=== PATIENT | male | born 1940 | race Caucasian/White ===

== ENCOUNTER 2019-04-18 11:53 | Observation (INO) | payer MEDICARE, OTHER, SELFPAY ==
[2019-04-18] VITALS (7 sets, daily range): BP systolic 151–169; BP diastolic 63–96; PULSE 58–67; RESP 16–21; TEMP 36.5–37.4; O2SAT 95–100; BMI 27.7
[2019-04-18 12:12] LABS: Add Manual Diff / Slide Review NO; Basophils Absolute Auto 0 /uL (0-100); Basophils Percent Auto 0.6 % (0-2); Eosinophils Absolute Auto 0 /uL (0-450); Eosinophils Percent Auto 0.4 % (2-4); Hematocrit 41.5 % (41-53); Lymphocytes Absolute Auto 1300 /uL (1100-4500); Lymphocytes Percent Auto 20.3 % (25-40); Mean Corpuscular HGB Conc 33.7 % (30-36); Mean Corpuscular Hemoglobin 31.3 PG (26-34); Monocytes Absolute Auto 400 /uL (0-900); Monocytes Percent Auto 6.5 % (3-14); Neutrophils Absolute Auto 4500 /uL (1500-7000); Neutrophils Percent Auto 72.2 % (50-75); Platelet Count 197 X10^3/uL (150-400); Red Blood Cell Count 4.46 X10^6/uL (4.5-5.9); Red Cell Distribution Width 14.6 % (11.6-14.8); White Blood Cell Count 6.2 X10^3/uL (4.5-11.0)
--- NOTE | 2019-04-18 12:17 | ED_ITS ---
HPI - Neuro Symptoms/Deficit <JUVENCIO Kingston - Last Filed: 04/18/19 21:55> General Chief Complaint: Neuro Symptoms/Deficit Stated Complaint: Possible stroke this morning Time Seen by Provider: 04/18/19 12:03 Source: patient Mode of arrival: ambulatory Limitations: no limitations History of Present Illness HPI Narrative: 78-year-old male with a history of CVA 6 years ago and a TIA 5 y ears ago, presents emergency department today complaining of right-sided facial numbness that extended to his right arm and right hip at 3:00 a.m. this morning. At that time he noted a little bit of nausea and a 1 on a 10 dull aching frontal headache. Patient went back to sleep. When he awoke with the symptoms he called his neurologist Dr. Pelletier in [place] and was instructed to take 4 pills of Plavix and 1 aspirin. Patient states he took 1 Plavix at 8:30 a.m., and 3 with an aspirin at 9:45 a.m.. Patient states his arm and leg numbness have completely resolved but the right-sided facial numbness, but he reports little bit better, he states it is still continuing, additionally has low-grade headache still remains. He denies any head trauma, vision changes, dysarthria, dysphagia, facial droop, drooling, difficulty speaking, limb weakness, fevers, chest pain, shortness of breath, dizziness, vomiting, diarrhea, abdominal pain, change in bowel patterns, bleeding or bruising, dysuria, or swelling of his legs. Patient was able to give clear history, patient's was at bedside at this time. On Anticoagulants: Yes (Plavix) Related Data Home Medications Medication Instructions Recorded Confirmed atorvastatin 40 mg PO QPM 04/18/19 04/18/19 clopidogrel 75 mg PO DAILY 04/18/19 04/18/19 Allergies Allergy/AdvReac Type Severity Reaction Status Date / Time Sulfa (Sulfonamide Allergy Mild Rash Verified 04/18/19 12:08 Antibiotics) Review of Systems <JUVENCIO Kingston - Last Filed: 04/18/19 21:55> Review of Systems Narrative: REVIEW OF SYSTEMS: GENERAL: Denies fever, chills, malaise, or wt. loss. HENT: No head trauma, hearing loss, rhinorrhea, epistaxis, sinus pressure, sore throat, or dysphagia. EYES: No loss of vision, double vision, eye pain, or irritation. CARDIOVASCULAR: No chest pain, palpitations, edema, syncope, or orthopnea. RESPIRATORY: No shortness of breath, cough, or wheeze. GASTROINTESTINAL: No change in appetite, nausea, vomiting, stool changes, or melena. GENITOURINARY: No flank pain, urinary incontinence, hesitancy, frequency, or dysuria. No vaginal discharge or dyspareunia. MUSCULOSKELETAL: No pain, weakness, or deformities. INTEGUMENTARY: No rash, lesions, or pruritus. NEURO: Patient rate sports right-sided facial numbness, see HPI. Denies memory loss, confusion, or headaches. PSYCH: No behavior or mood changes. ENDOCRINOLOGY: No hair loss of temperature intolerance. HEMATOLOGY: No easy bruising. LYMPHATIC: No lymphadenopathy. PFSH <JUVENCIO Kingston - Last Filed: 04/18/19 21:55> Medical History CVA (cerebral vascular accident) (Acute) TIA (transient ischemic attack) (Acute) Social History household members: spouse Smoking Status: Former smoker Social History household members: spouse Smoking Status: Former smoker Exam <JUVENCIO Kingston - Last Filed: 04/18/19 21:55> Initial Vital Signs Initial Vital Signs: Vital Signs Temperature 98.5 F 04/18/19 12:05 Pulse Rate 67 04/18/19 12:05 Respiratory Rate 17 04/18/19 12:05 Blood Pressure 151/83 H 04/18/19 12:05 Pulse Oximetry 96 04/18/19 12:05 PHYSICAL EXAMINATION: GENERAL: Well groomed, alert, and cooperative Answers questions promptly and appropriately. Vital signs noted. HENT: Normocephalic, atraumatic. Oral mucosa is pink and moist, no caries or lesions present. Pharynx without erythema. EYES: PERRLA, EOMIs, conjunctiva pink, sclera white, no periorbital swelling. NECK: Full range of motion, nontender. LYMPH: No lymphadenopathy. CHEST: Normal to inspection and without deformities. CARDIOVASCULAR: S1 and S2 sounds normal. Regular rate and rhythm, no murmurs, clicks, or bruits. No pedal edema. RESPIRATORY: Normal respiratory rate, trachea midline, airway patent. No stridor, nasal flaring or accessory muscle use. Lungs are clear in all morales without wheeze, rhonchi, or crackles. GASTROINTESTINAL: Bowel sounds normoactive. Abdomen is soft and non-tender. No organomegaly. MUSCULOSKELETAL: Normal gait and coordination. Equal tone and mass bilaterally. No spinal tenderness or deformities. EXTREMITIES: CMS intact. Full range of motion and 5/5 strength to upper and lower extremities SKIN: Warm, dry, soft, appropriate color for ethnicity. No lesions, rashes, or wounds. NEURO: Alert and Oriented X 3. CN III-XII grossly intact. Good coordination. No ataxia, or sensory deficits, or cognitive issues. Serial made scores were done initially, 30 minutes later, an additional 15 minutes later; all NIH scores were 0. Patient was able to this distinguish light touch sensation on both sides of his face, he was able to distinguish between sharp and dull, and two-point distinction was recognized at 1-2cm. PSYCH: Appropriate affect and mood. <Ashlee Mcmahon MD - Last Filed: 04/19/19 16:24> Initial Vital Signs Initial Vital Signs: Vital Signs Temperature 98.5 F 04/18/19 12:05 Pulse Rate 67 04/18/19 12:05 Respiratory Rate 17 04/18/19 12:05 Blood Pressure 151/83 H 04/18/19 12:05 Pulse Oximetry 96 04/18/19 12:05 Scores <JUVENCIO Kingston - Last Filed: 04/18/19 21:55> NIH Stroke Scale Level of Conciousness: Alert, keenly responsive Ask month/age: Answers both questions correctly. Open/close eyes, close hand: Performs both tasks correctly Best gaze horizontal: Normal Visual morales: No visual loss Facial palsy: Normal symetrical movement Left arm drift: No drift for full 10 sec Right arm drift: No drift for full 10 sec Left leg drift: No drift for full 10 sec Right leg drift: No drift for full 10 sec Limb ataxia: Absent Sensory on face/arms/legs: Normal, no sensory loss Best language: No aphasia, normal Dysarthria: Normal Extinction or inattention: No abnormality Total NIH Stroke scale score: 0 Course <JUVENCIO Kingston - Last Filed: 04/18/19 21:55> Course Course Narrative: Patient's symptoms remained unchanged throughout the emergency department stay. I consulted the patient's neurologist Dr. Pelletier in [place]. He stated the differential included transient symptoms from his previous CVA versus another TIA, he recommended that patient be admitted to and have a follow-up MRI in the morning. Dr. Flores was consulted, a agreed to admit the patient to observation. The patient and his was updated. Orders Ordered: Discontinued Medications Acetaminophen (Tylenol) 650 mg PO Q6HR PRN PRN Reason: As Needed for Fever/Mild Pain Atorvastatin Calcium (Lipitor) 40 mg PO QPM [facility] Last Admin: 04/18/19 15:59 Dose: 40 mg Documented by: FUNMILAYO Clopidogrel Bisulfate (Plavix) 75 mg PO DAILY [facility] Admin: 04/19/19 08:48 Dose: 75 mg Documented by: TERRI Heparin Sodium (Porcine) (Heparin) 5,000 unit SUBCUT BID [facility] Last Admin: 04/19/19 08:48 Dose: Not Given Documented by: Admin: 04/18/19 20:20 Dose: 5,000 unit Documented by: AMANDA Sodium Chloride (Normal Saline 0.9%) 1,000 mls @ 100 mls/hr IV CONT [facility] Last Infusion: 04/19/19 07:47 Dose: 0 mls/hr Documented by: Admin: 04/19/19 04:46 Dose: 100 mls/hr Documented by: Infusion: 04/19/19 03:46 Dose: 100 mls/hr Documented by: Infusion: 04/18/19 21:46 Dose: 100 mls/hr Documented by: Infusion: 04/18/19 14:34 Dose: 150 mls/hr Documented by: Admin: 04/18/19 12:33 Dose: 150 mls/hr Documented by: LOWELL Lisinopril (Zestril) 5 mg PO DAILY [facility] Losartan Potassium (Cozaar) 12.5 mg PO DAILY [facility] Last Admin: 04/19/19 09:38 Dose: Not Given Documented by: TERRI Vital Signs Vital signs: Vital Signs - 8 hr 04/18/19 12:05 Temperature 98.5 F Pulse Rate 67 Respiratory Rate 17 Blood Pressure 151/83 H Pulse Oximetry 96 <Ashlee Mcmahon MD - Last Filed: 04/19/19 16:24> Orders Ordered: Discontinued Medications Acetaminophen (Tylenol) 650 mg PO Q6HR PRN PRN Reason: As Needed for Fever/Mild Pain Atorvastatin Calcium (Lipitor) 40 mg PO QPM [facility] Last Admin: 04/18/19 15:59 Dose: 40 mg Documented by: FUNMILAYO Clopidogrel Bisulfate (Plavix) 75 mg PO DAILY [facility] Last Admin: 04/19/19 08:48 Dose: 75 mg Documented by: TERRI Heparin Sodium (Porcine) (Heparin) 5,000 unit SUBCUT BID [facility] Last Admin: 04/19/19 08:48 Dose: Not Given Documented by: Admin: 04/18/19 20:20 Dose: 5,000 unit Documented by: AMANDA Sodium Chloride (Normal Saline 0.9%) 1,000 mls @ 100 mls/hr IV CONT [facility] Last Infusion: 04/19/19 07:47 Dose: 0 mls/hr Documented by: Admin: 04/19/19 04:46 Dose: 100 mls/hr Documented by: Infusion: 04/19/19 03:46 Dose: 100 mls/hr Documented by: Infusion: 04/18/19 21:46 Dose: 100 mls/hr Documented by: Infusion: 04/18/19 14:34 Dose: 150 mls/hr Documented by: Admin: 04/18/19 12:33 Dose: 150 mls/hr Documented by: LOWELL Lisinopril (Zestril) 5 mg PO DAILY [facility] Losartan Potassium (Cozaar) 12.5 mg PO DAILY [facility] Last Admin: 04/19/19 09:38 Dose: Not Given Documented by: TERRI Vital Signs Vital signs: Vital Signs - 8 hr 04/18/19 12:05 Temperature 98.5 F Pulse Rate 67 Respiratory Rate 17 Blood Pressure 151/83 H Pulse Oximetry 96 MDM - Neuro Symptoms/Deficit <JUVENCIO Kingston - Last Filed: 04/18/19 21:55> Medical Records Attestation: I reviewed the patient's medical records. Lab Data Attestation: I reviewed the patient's lab results. Result diagrams: 04/19/19 05:32 04/19/19 05:32 Labs: Lab Results 04/18/19 04/18/19 04/18/19 Range/Units 12:05 12:05 12:05 WBC 6.2 (4.5-11.0) X10^3/uL RBC 4.46 L (4.5-5.9) X10^6/uL Hgb 14.0 (13.5-17.5) g/dL Hct 41.5 (41-53) % MCV 93.0 (80-100) fL MCH 31.3 (26-34) PG MCHC 33.7 (30-36) % RDW 14.6 (11.6-14.8) % Plt Count 197 (150-400) X10^3/uL Neut % (Auto) 72.2 (50-75) % Lymph % (Auto) 20.3 L (25-40) % Pratt % (Auto) 6.5 (3-14) % Eos % (Auto) 0.4 L (2-4) % Baso % (Auto) 0.6 (0-2) % Neut # (Auto) 4500 (2892-8699) /uL Lymph # (Auto) 1300 (8178-3183) /uL Pratt # (Auto) 400 (0-900) /uL Eos # (Auto) 0 (0-450) /uL Baso # (Auto) 0 (0-100) /uL PT 10.7 (10.1-12.7) SECONDS INR 0.9 (0.9-1.3) APTT 29 (26.4-36.2) SECONDS Sodium 141 (137-145) mmol/L Potassium 4.0 (3.4-5.1) mmol/L Chloride 106 (98-107) mmol/L Carbon Dioxide 24 (22-32) mmol/L BUN 19 (9-20) mg/dL Creatinine 0.70 (0.66-1.25) mg/dL Estimated GFR > 60.0 (>60) mL/min BUN/Creatinine Ratio 27.1 H (6-22) Glucose 119 H (80-110) mg/dL Calcium 9.7 (8.4-10.2) mg/dL Urine RBC (0-5/HPF) Urine WBC (0-5/HPF) Ur Squamous Epith Cells (0-5/HPF) Urine Bacteria (None) Ur Culture Indicated? Urine Opiates Screen (Negative) Ur Oxycodone Screen (Negative) Urine Methadone Screen (Negative) Ur Barbiturates Screen (Negative) U Tricyclic Antidepress (Negative) Ur Phencyclidine Scrn (Negative) Ur Amphetamines Screen (Negative) U Methamphetamines Scrn (Negative) Ur MDMA Scrn (Ecstasy) (Negative) U Benzodiazepines Scrn (Negative) Urine Cocaine Screen (Negative) U Marijuana (THC) Screen (Negative) 04/18/19 04/18/19 Range/Units 13:10 13:10 WBC (4.5-11.0) X10^3/uL RBC (4.5-5.9) X10^6/uL Hgb (13.5-17.5) g/dL Hct (41-53) % MCV (80-100) fL MCH (26-34) PG MCHC (30-36) % RDW (11.6-14.8) % Plt Count (150-400) X10^3/uL Neut % (Auto) (50-75) % Lymph % (Auto) (25-40) % Pratt % (Auto) (3-14) % Eos % (Auto) (2-4) % Baso % (Auto) (0-2) % Neut # (Auto) (8946-2487) /uL Lymph # (Auto) (1055-4467) /uL Pratt # (Auto) (0-900) /uL Eos # (Auto) (0-450) /uL Baso # (Auto) (0-100) /uL PT (10.1-12.7) SECONDS INR (0.9-1.3) APTT (26.4-36.2) SECONDS Sodium (137-145) mmol/L Potassium (3.4-5.1) mmol/L Chloride (98-107) mmol/L Carbon Dioxide (22-32) mmol/L BUN (9-20) mg/dL Creatinine (0.66-1.25) mg/dL Estimated GFR (>60) mL/min BUN/Creatinine Ratio (6-22) Glucose (80-110) mg/dL Calcium (8.4-10.2) mg/dL Urine RBC None seen (0-5/HPF) Urine WBC 5-10/hpf H (0-5/HPF) Ur Squamous Epith Cells 10-30 /hpf H (0-5/HPF) Urine Bacteria None seen (None) Ur Culture Indicated? Cult not indicated Urine Opiates Screen Positive H (Negative) Ur Oxycodone Screen Negative (Negative) Urine Methadone Screen Negative (Negative) Ur Barbiturates Screen Negative (Negative) U Tricyclic Antidepress Negative (Negative) Ur Phencyclidine Scrn Negative (Negative) Ur Amphetamines Screen Negative (Negative) U Methamphetamines Scrn Negative (Negative) Ur MDMA Scrn (Ecstasy) Negative (Negative) U Benzodiazepines Scrn Negative (Negative) Urine Cocaine Screen Negative (Negative) U Marijuana (THC) Screen Negative (Negative) Point of Care Testing Glucose POC 108 Urine Dip Bedside Urine Glucose Negative Bedside Urine Bilirubin - Negative Bedside Urine Ketone - Negative Urine Specific [place] 1.005 Bedside Urine Occult Blood +++ Bedside Urine pH 8 Bedside Urine Protein - Negative Bedside Urine Urobilinogen - Negative Bedside Urine Nitrite - Negative Bedside Urine Leukocytes + [address] scan - head: Radiologist's impression: [address] [address] [address] Scan Report Signed Patient: Jacob Pereyra WMR#: [id number] : 1940Acct:[id number] Age/Sex: 78 / MDate of Service: 04/18/19 Loc: ED Accession Number: [id number] Procedure: CT head/brain wo con Ordering Provider: Ping Ramos PROCEDURE: CT HEAD/BRAIN WO CON INDICATIONS: Facial numbness, hz of CVA TECHNIQUE: Noncontrast 4.5 mm thick angled axial sections acquired from the foramen magnum to the vertex, with coronal and sagittal reformats. For radiation dose reduction, the following was used: automated exposure control, adjustment of mA and/or kV according to patient size. COMPARISON: None. FINDINGS: Image quality: Excellent. CSF spaces: Basal cisterns are patent. No extra-axial fluid collections. The ventricles are symmetric in size and shape. Brain: No intracranial bleeds or masses. There is cerebral volume loss for age, with resultant ventricular and sulcal prominence. There are periventricular and deep white matter chronic small vessel ischemic changes. There is intracranial internal carotid artery atherosclerosis. Skull and face: Calvarium and visualized facial bones appear intact, without suspicious lesions. Sinuses: Visualized sinuses and mastoids are clear. IMPRESSION: 1. No acute intracranial abnormalities. 2. Cerebral volume loss and chronic microvascular ischemic changes. Dictated by: Vic Deng M.D. on 04/18/2019 at 11:32 Approved by: Vic Deng M.D. on 04/18/2019 at 11:34 ECG Data Interpretation: Normal sinus rhythm, rate 62, FL interval 171, QTC 414. No ST elevation or ST depression, no ectopy, no T-wave abnormality. EKG was also viewed by Dr. Mcmahon. MDM Narrative Medical decision making narrative: As discussed with neurologist the differential includes TIA versus transient residual symptoms from past CVA. Further testing such as an MRI is needed to rule out an differentiate these diagnosis. I have less concern for CVA as patient's serial NIH scores have remained 0 and there is no neurological deficit noted on exam. No concern for infection or other non possible etiologies such as shingles due to lack of systemic symptoms such as rash, fever, or tachycardia. Patient was admitted under observation. <Ashlee Mcmahon MD - Last Filed: 04/19/19 16:24> Lab Data Labs: Lab Results 04/18/19 04/18/19 04/18/19 Range/Units 12:05 12:05 12:05 WBC 6.2 (4.5-11.0) X10^3/uL RBC 4.46 L (4.5-5.9) X10^6/uL Hgb 14.0 (13.5-17.5) g/dL Hct 41.5 (41-53) % MCV 93.0 (80-100) fL MCH 31.3 (26-34) PG MCHC 33.7 (30-36) % RDW 14.6 (11.6-14.8) % Plt Count 197 (150-400) X10^3/uL Neut % (Auto) 72.2 (50-75) % Lymph % (Auto) 20.3 L (25-40) % Pratt % (Auto) 6.5 (3-14) % Eos % (Auto) 0.4 L (2-4) % Baso % (Auto) 0.6 (0-2) % Neut # (Auto) 4500 (5880-0790) /uL Lymph # (Auto) 1300 (2543-6006) /uL Pratt # (Auto) 400 (0-900) /uL Eos # (Auto) 0 (0-450) /uL Baso # (Auto) 0 (0-100) /uL PT 10.7 (10.1-12.7) SECONDS INR 0.9 (0.9-1.3) APTT 29 (26.4-36.2) SECONDS Sodium 141 (137-145) mmol/L Potassium 4.0 (3.4-5.1) mmol/L Chloride 106 (98-107) mmol/L Carbon Dioxide 24 (22-32) mmol/L BUN 19 (9-20) mg/dL Creatinine 0.70 (0.66-1.25) mg/dL Estimated GFR > 60.0 (>60) mL/min BUN/Creatinine Ratio 27.1 H (6-22) Glucose 119 H (80-110) mg/dL Calcium 9.7 (8.4-10.2) mg/dL Urine RBC (0-5/HPF) Urine WBC (0-5/HPF) Ur Squamous Epith Cells (0-5/HPF) Urine Bacteria (None) Ur Culture Indicated? Urine Opiates Screen (Negative) Ur Oxycodone Screen (Negative) Urine Methadone Screen (Negative) Ur Barbiturates Screen (Negative) U Tricyclic Antidepress (Negative) Ur Phencyclidine Scrn (Negative) Ur Amphetamines Screen (Negative) U Methamphetamines Scrn (Negative) Ur MDMA Scrn (Ecstasy) (Negative) U Benzodiazepines Scrn (Negative) Urine Cocaine Screen (Negative) U Marijuana (THC) Screen (Negative) 04/18/19 04/18/19 Range/Units 13:10 13:10 WBC (4.5-11.0) X10^3/uL RBC (4.5-5.9) X10^6/uL Hgb (13.5-17.5) g/dL Hct (41-53) % MCV (80-100) fL MCH (26-34) PG MCHC (30-36) % RDW (11.6-14.8) % Plt Count (150-400) X10^3/uL Neut % (Auto) (50-75) % Lymph % (Auto) (25-40) % Pratt % (Auto) (3-14) % Eos % (Auto) (2-4) % Baso % (Auto) (0-2) % Neut # (Auto) (5948-3590) /uL Lymph # (Auto) (9713-8844) /uL Pratt # (Auto) (0-900) /uL Eos # (Auto) (0-450) /uL Baso # (Auto) (0-100) /uL PT (10.1-12.7) SECONDS INR (0.9-1.3) APTT (26.4-36.2) SECONDS Sodium (137-145) mmol/L Potassium (3.4-5.1) mmol/L Chloride (98-107) mmol/L Carbon Dioxide (22-32) mmol/L BUN (9-20) mg/dL Creatinine (0.66-1.25) mg/dL Estimated GFR (>60) mL/min BUN/Creatinine Ratio (6-22) Glucose (80-110) mg/dL Calcium (8.4-10.2) mg/dL Urine RBC None seen (0-5/HPF) Urine WBC 5-10/hpf H (0-5/HPF) Ur Squamous Epith Cells 10-30 /hpf H (0-5/HPF) Urine Bacteria None seen (None) Ur Culture Indicated? Cult not indicated Urine Opiates Screen Positive H (Negative) Ur Oxycodone Screen Negative (Negative) Urine Methadone Screen Negative (Negative) Ur Barbiturates Screen Negative (Negative) U Tricyclic Antidepress Negative (Negative) Ur Phencyclidine Scrn Negative (Negative) Ur Amphetamines Screen Negative (Negative) U Methamphetamines Scrn Negative (Negative) Ur MDMA Scrn (Ecstasy) Negative (Negative) U Benzodiazepines Scrn Negative (Negative) Urine Cocaine Screen Negative (Negative) U Marijuana (THC) Screen Negative (Negative) Point of Care Testing Glucose POC 108 Urine Dip Bedside Urine Glucose Negative Bedside Urine Bilirubin - Negative Bedside Urine Ketone - Negative Urine Specific [place] 1.005 Bedside Urine Occult Blood +++ Bedside Urine pH 8 Bedside Urine Protein - Negative Bedside Urine Urobilinogen - Negative Bedside Urine Nitrite - Negative Bedside Urine Leukocytes + 70 Esterase Discharge Plan Departure Patient Disposition: Admitted as Observation Clinical Impression: TIA (transient ischemic attack) Discharge Date/Time: 04/18/19 14:34 Instructions: The Mediterranean Diet and Good Health, Recommendations to Help Prevent High Blood Pressure, Transient Ischemic Attack, DI for Transient Ischemic Attack, DI for Prediabetes Admit Date/Time: 04/18/19 13:54 Admit Provider: Ricardo Flores
[2019-04-18 12:18] LABS: INR 0.9 (0.9-1.3); Prothrombin Time 10.7 SECONDS (10.1-12.7)
[2019-04-18 12:20] LABS: PTT Partial Thromboplastin Tim 29 SECONDS (26.4-36.2)
[2019-04-18 12:22] LABS: BUN Creatinine Ratio 27.1 (6-22); Blood Urea Nitrogen 19 mg/dL (9-20); Calcium 9.7 mg/dL (8.4-10.2); Carbon Dioxide 24 mmol/L (22-32); Chloride 106 mmol/L (98-107); Estimated Glomerular Filt Rate > 60.0 mL/min (>60); Glucose 119 mg/dL (80-110); HEMOLYSIS 25 (0-50); Sodium 141 mmol/L (137-145)
--- NOTE | 2019-04-18 12:22 | DI.CT.S_ITS ---
PROCEDURE: CT HEAD/BRAIN WO CON INDICATIONS: Facial numbness, hz of CVA TECHNIQUE: Noncontrast 4.5 mm thick angled axial sections acquired from the foramen magnum to the vertex, with coronal and sagittal reformats. For radiation dose reduction, the following was used: automated exposure control, adjustment of mA and/or kV according to patient size. COMPARISON: None. FINDINGS: Image quality: Excellent. CSF spaces: Basal cisterns are patent. No extra-axial fluid collections. The ventricles are symmetric in size and shape. Brain: No intracranial bleeds or masses. There is cerebral volume loss for age, with resultant ventricular and sulcal prominence. There are periventricular and deep white matter chronic small vessel ischemic changes. There is intracranial internal carotid artery atherosclerosis. Skull and face: Calvarium and visualized facial bones appear intact, without suspicious lesions. Sinuses: Visualized sinuses and mastoids are clear. IMPRESSION: 1. No acute intracranial abnormalities. 2. Cerebral volume loss and chronic microvascular ischemic changes. Dictated by: Vic Deng M.D. on 04/18/2019 at 11:32 Approved by: Vic Deng M.D. on 04/18/2019 at 11:34
[2019-04-18] MEDS: SODIUM CHLORIDE 0.9% 1,000 ML 150 ML IV (12:33)
[2019-04-18 13:16] LABS: Bacteria Urine None Seen; RBC Urine None Seen (0-5/HPF)
[2019-04-18 13:27] LABS: Urine Amphetamines Negative (Negative); Urine Barbiturates Negative (Negative); Urine Benzodiazepines Negative (Negative); Urine Cocaine Negative (Negative); Urine MDMA Negative (Negative); Urine Methadone Negative (Negative); Urine Methamphetamines Negative (Negative); Urine Morphine/Opi cutoff 2000 Positive (Negative); Urine Oxycodone Negative (Negative); Urine Phencyclidine Negative (Negative); Urine Tetrahydrocannabinol Negative (Negative); Urine Tricyclic Antidepressant Negative (Negative)
[2019-04-18 13:28] LABS: Culture Indicated Urine Cult Not Indicated; Squamous Epithelial Cell Urine 10-30 /HPF (0-5/HPF); WBC Urine 5-10/HPF (0-5/HPF)
--- NOTE | 2019-04-18 15:40 | P.HP_ITS ---
History of Present Illness History of Present Illness Date Patient Seen: 04/18/19 Time Patient Seen: 15:40 Chief complaint: Possible stoke this morning Narrative: Mr. Pereyra is a 78-year-old male with past medical history of CVA 6 years ago and subsequent TIA 5 years ago on Plavix and hyperlipidemia who presented with new onset of right-sided numbness starting at 3:00 a.m. this morning. Patient states that he woke up at 3:00 a.m. to urinate, an noticed this and went back to bed. When he spoke with his at 6:30 a.m. he again noted right-sided numbness in his arm, leg and mouth. His with him and did not note any facial droop, imbalance, slurred speech, focal weakness in his right side. He states this is similar to his prior CVA 6 years ago. He normally has some numbness on the tips of his hands since his prior CVA but this episode was profoundly worse. He states now that his symptoms have largely resolved. He denies any recent fever, chills, headache, vision changes, chest pain, shortness of breath, nausea, vomiting, abdominal pain, lower extremity edema, orthopnea, or rashes. He has a neurologist that follows him, whom he called this morning and recommended that he take 4 75mg Plavix and a baby aspirin and go to the emergency room. In the emergency room his symptoms had improved including his right arm and right leg numbness, however his right facial numbness continued. Upon my evaluation the patient denied any symptoms at all. Total duration of symptoms was about 12 hours from known onset at 3:00 a.m. Patient History Medical History (Updated 04/18/19 @ 18:50 by Ricardo Flores DO) CVA (cerebral vascular accident) (Acute) TIA (transient ischemic attack) (Acute) Social History household members: spouse Smoking Status: Former smoker Family & Social History Safety & Behavioral: Feels Safe in Current Yes Environment Tobacco & Substance use: Smoking Status Former smoker alcohol intake frequency 3 or more drinks per day Substance Use Type does not use Meds Home Medications and Allergies Home Medications Medication Instructions Recorded Confirmed Type atorvastatin 40 mg PO QPM 04/18/19 04/18/19 History clopidogrel 75 mg PO DAILY 04/18/19 04/18/19 History Allergies Allergy/AdvReac Type Severity Reaction Status Date / Time Sulfa (Sulfonamide Allergy Mild Rash Verified 04/18/19 12:08 Antibiotics) Review of Systems Review of Systems Narrative: All other systems reviewed with the patient and are negative unless otherwise stated. Exam Vital Signs (past 8 hours): - 04/18/19 12:05 04/18/19 13:33 04/18/19 14:37 Temperature 98.5 F 97.7 F Pulse Rate 67 64 64 Respiratory Rate 17 21 16 Blood Pressure 151/83 H 160/96 H Blood Pressure [Left Arm] 160/87 H Pulse Oximetry 96 96 100 Oxygen Delivery Method Room Air Oxygen Flow Rate 0 Narrative Exam Narrative: GENERAL APPEARANCE: Well developed, well nourished, in no acute distress. SKIN: Inspection of the skin reveals no rashes, ulcerations or petechiae. HEENT: The sclerae were anicteric and conjunctivae were pink and moist. Extraocular movements were intact and pupils were equal, round with normal accommodation. External inspection of the ears and nose showed no scars, lesions, or masses. Lips, teeth, and gums showed normal mucosa. The oral mucosa, hard and soft palate, tongue and posterior pharynx were unremarkable. NECK: Supple and symmetric. There was no thyroid enlargement, and no tenderness, or masses were felt. CHEST: Normal AP diameter and normal contour without any kyphoscoliosis. LUNGS: Auscultation of the lungs revealed no wheezes, rhonchi, or rales. CARDIOVASCULAR: There was a regular rate and rhythm without any murmurs, gallops, rubs. Peripheral pulses were 2+ and symmetric. ABDOMEN: Soft and nontender with normal bowel sounds. No ascites was noted. MUSCULOSKELETAL: There was no tenderness or effusions noted. Muscle strength and tone were normal. EXTREMITIES: No cyanosis, clubbing or edema. NEUROLOGIC: Alert and oriented x 3. Normal affect. Gait was normal. CN 2-12 grossly intact bilaterally. Strength is +5/5 in the Upper Extremities and Lower Extremities Bilaterally. Sensation to touch was normal. Objective Labs Result Diagrams: 04/18/19 12:05 04/18/19 12:05 Labs: Laboratory Results - last 24 hr 04/18/19 04/18/19 04/18/19 12:05 12:05 12:05 WBC 6.2 RBC 4.46 L Hgb 14.0 Hct 41.5 MCV 93.0 MCH 31.3 MCHC 33.7 RDW 14.6 Plt Count 197 Neut % (Auto) 72.2 Lymph % (Auto) 20.3 L [place] % (Auto) 6.5 Eos % (Auto) 0.4 L Baso % (Auto) 0.6 Neut # (Auto) 4500 Lymph # (Auto) 1300 [place] # (Auto) 400 Eos # (Auto) 0 Baso # (Auto) 0 PT 10.7 INR 0.9 APTT 29 Sodium 141 Potassium 4.0 Chloride 106 Carbon Dioxide 24 BUN 19 Creatinine 0.70 Estimated GFR > 60.0 BUN/Creatinine Ratio 27.1 H Glucose 119 H Calcium 9.7 Urine RBC Urine WBC Ur Squamous Epith Cells Urine Bacteria Ur Culture Indicated? Urine Opiates Screen Ur Oxycodone Screen Urine Methadone Screen Ur Barbiturates Screen U Tricyclic Antidepress Ur Phencyclidine Scrn Ur Amphetamines Screen U Methamphetamines Scrn Ur MDMA Scrn (Ecstasy) U Benzodiazepines Scrn Urine Cocaine Screen U Marijuana (THC) Screen 04/18/19 04/18/19 13:10 13:10 WBC RBC Hgb Hct MCV MCH MCHC RDW Plt Count Neut % (Auto) Lymph % (Auto) [place] % (Auto) Eos % (Auto) Baso % (Auto) Neut # (Auto) Lymph # (Auto) [place] # (Auto) Eos # (Auto) Baso # (Auto) PT INR APTT Sodium Potassium Chloride Carbon Dioxide BUN Creatinine Estimated GFR BUN/Creatinine Ratio Glucose Calcium Urine RBC None seen Urine WBC 5-10/hpf H Ur Squamous Epith Cells 10-30 /hpf H Urine Bacteria None seen Ur Culture Indicated? Cult not indicated Urine Opiates Screen Positive H Ur Oxycodone Screen Negative Urine Methadone Screen Negative Ur Barbiturates Screen Negative U Tricyclic Antidepress Negative Ur Phencyclidine Scrn Negative Ur Amphetamines Screen Negative U Methamphetamines Scrn Negative Ur MDMA Scrn (Ecstasy) Negative U Benzodiazepines Scrn Negative Urine Cocaine Screen Negative U Marijuana (THC) Screen Negative Assessment & Plan Assessment & Plan narrative: Mr. Pereyra is a 78-year-old male with past medical history of CVA 6 years ago and subsequent TIA 5 years ago on Plavix and hyperlipidemia who presented with new onset of right-sided numbness starting at 3:00 a.m. this morning, he is admitted to the medicine service for likely TIA under observation status. 1. TIA, acute, present on admission -patient presented with right-sided numbness without motor involvement. He reports a similar presentation prior to his prior CVA. Patient's medications are only a statin and Plavix. He denies any other medical health problems but his blood pressure is slightly elevated on admission. -MRI stroke in the morning -PT/OT/speech eval -lipid, TSH, A1c -continue Plavix 2. Hypertension -patient is not currently on any antihypertensive medications. His blood pressure has improved slightly since arriving to the floor. We will allow some permissive hypertension given TIA overnight, however will start small dose of lisinopril in the morning.. - start lisinopril 5 mg in the AM Code: full DVT: HSQ Dispo: Admit as observation stay is not expected to exceed 2 midnights.
[2019-04-18] MEDS: ATORVASTATIN 20 MG TABLET 40 MG PO (15:59)
[2019-04-18] MEDS: HEPARIN 5,000 UNIT/ML VIAL 5000 UNIT SUBCUT (20:20)
[2019-04-19 00:30] VITALS: O2SAT 96
[2019-04-19 04:23] VITALS: BP 149/76; PULSE 67; RESP 16; TEMP 36.6; O2SAT 91
[2019-04-19] MEDS: SODIUM CHLORIDE 0.9% 1,000 ML 100 ML IV (04:46)
[2019-04-19 06:23] LABS: Add Manual Diff / Slide Review NO; Basophils Absolute Auto 0 /uL (0-100); Basophils Percent Auto 0.5 % (0-2); Eosinophils Absolute Auto 100 /uL (0-450); Eosinophils Percent Auto 1.5 % (2-4); Hematocrit 38.5 % (41-53); Lymphocytes Absolute Auto 1800 /uL (1100-4500); Lymphocytes Percent Auto 28.2 % (25-40); Mean Corpuscular HGB Conc 33.9 % (30-36); Mean Corpuscular Hemoglobin 31.3 PG (26-34); Mean Corpuscular Volume 92.2 fL (80-100); Monocytes Absolute Auto 600 /uL (0-900); Monocytes Percent Auto 8.6 % (3-14); Neutrophils Absolute Auto 4000 /uL (1500-7000); Neutrophils Percent Auto 61.2 % (50-75); Platelet Count 190 X10^3/uL (150-400); Red Blood Cell Count 4.17 X10^6/uL (4.5-5.9); Red Cell Distribution Width 14.6 % (11.6-14.8); White Blood Cell Count 6.5 X10^3/uL (4.5-11.0)
[2019-04-19 06:30] LABS: BUN Creatinine Ratio 21.3 (6-22); Blood Urea Nitrogen 17 mg/dL (9-20); Calcium 8.7 mg/dL (8.4-10.2); Carbon Dioxide 26 mmol/L (22-32); Chloride 107 mmol/L (98-107); Cholesterol 167 mg/dL (140-199); Estimated Glomerular Filt Rate > 60.0 mL/min (>60); Glucose 122 mg/dL (80-110); HDL Cholesterol 57 mg/dL (40-60); HEMOLYSIS < 15 (0-50); LDL Cholesterol Calculated 77 mg/dL (<100); Magnesium 1.9 mg/dL (1.6-2.3); Potassium 3.7 mmol/L (3.4-5.1); Sodium 138 mmol/L (137-145); Triglycerides 164 mg/dL (35-150)
[2019-04-19 06:41] LABS: Hemoglobin A1C% w Est Avg Glu 5.7 % (4.0-6.0)
[2019-04-19 06:59] LABS: TSH w/ Reflex to FT4 2.59 uIU/mL (0.47-4.68)
[2019-04-19 07:45] VITALS: O2SAT 97
[2019-04-19] MEDS: CLOPIDOGREL 75 MG TABLET PO (08:48)
[2019-04-19 09:00] VITALS: BP 133/78; PULSE 70; RESP 16; TEMP 36.7; O2SAT 97
--- NOTE | 2019-04-19 09:00 | PT.IIE ---
Medical History (Last Reviewed 04/18/19 @ 21:48 by JUVENCIO Kingston) CVA (cerebral vascular accident) (Acute) TIA (transient ischemic attack) (Acute) Physical Therapy Inpatient Evaluation/Re-Eval M1 PT/OT-IP Prior Functional Status Start: 04/19/19 13:06 Freq: NEEDED Status: Discharge Protocol: Document 04/19/19 09:00 AB (Rec: 04/19/19 13: AB [email or web address]) Medical Review Prior Functional Status Medical History Reviewed Yes Diet/Fluid Consistency Regular Communication able to make needs known Mobility and Gait pt stated that he is independent with all mobilities and ambulation without AD Social History Household Members spouse Living Arrangements House Number of Floors (Floors) 3 or More Floors Number of Stairs To Enter/Railing? pt lives in a split level house has 12 steps to enter without rails has stairs going down to 1st level and to 2nd level: maximum steps pt has on one level is 14 steps with one rail Home Environment Standard Height Toilet,Walk in Shower Home Equipment Hand Held Shower Employment Status Retired M2 PT-IP Current Condition Start: 04/19/19 13:06 Freq: NEEDED Status: Discharge Protocol: Document 04/19/19 09:00 AB (Rec: 04/19/19 13: AB [email or web address]) Physical Therapy Current Condition Current Condition Evaluation Date 04/19/19 Treatment Diagnosis TIA; difficulty in walking Onset Date 04/18/19 M3 PT-IP Subjective Start: 04/19/19 13:06 Freq: NEEDED Status: Discharge Protocol: Document 04/19/19 09:00 AB (Rec: 04/19/19 13: AB [email or web address]) Subjective Physical Therapy Visit Type Type Initial Evaluation Visit Start Time 09:00 Visit Stop Time 09:25 Total Visit Minutes 25 Number of WELDING SPECIALIST Visits 0 Physical Therapy Visit Comments Patient Comments pt agreeable to do PT Patient Goals to go home Therapy Pain Assessment Pain Present Pain Present Denied Pain M4 PT-IP Mobility and Gait Start: 04/19/19 13:06 Freq: NEEDED Status: Discharge Protocol: Document 04/19/19 09:00 AB (Rec: 04/19/19 13: AB [email or web address]) PT-Bed Mobility Assessment Supine to Sit Supine to Sit Independent Sit to Supine Sit to Supine Independent PT-Transfer Assessment Sit to and From Stand Sit to and from Stand Independent Equipment Transfer Assistive Device Gait Belt Transfers Transfer Destination Bed,Chair Transfer Technique Stand Step Pivot Transfer Ability Level of Assist Independent Gait Assessment Gait Gait Assistance Required: Standby Assistance Distance (Feet) 200 Able to Maintain Weight Bearing Status Yes During Gait Assistive Devices Assistive Device Gait Belt Orthotic/Prosthetic Devices or Brace: No Gait Deviations General Gait Pattern Antalgic,Lateral Trunk Lean Factors Limiting Gait Function Factors Limiting Gait Function Poor Balance Comments Gait Comments pt presents with antalgic gait with slight lateral trunk lean to the R but pt does not have any LOB. Stair Climbing Assessment Evaluation Level of Assist On Stairs Standby Assistance Devices Stair Climbing Assistive Devices None Technique/Endurance Stair Climbing Direction Ascend and Descend Stair Climbing Technique Step Over Step Number of Steps Climbed 3 Query Text: Stair Climbing Set # Repetitions (reps) 5 PT-Balance Assessment Sitting Balance and Reactions Static Sitting Balance Ability Normal Dynamic Sitting Balance Ability Normal Standing Balance and Reactions Static Standing Balance Ability Good Dynamic Standing Balance Ability Good Device Used without AD Functional Assessments Functional Tests Tinetti Balance and Gait Assessment total score: 25/28 which relates to low fall risk M5 PT-IP Objective Assessments Start: 04/19/19 13:06 Freq: NEEDED Status: Discharge Protocol: Document 04/19/19 09:00 AB (Rec: 04/19/19: AB [id number]) Orientation Orientation/Cognition Level of Alertness Alert Orientation Name,Age,Birthday,Month,Date, Year,Day of Week,Place, Situation Memory Description Short Term Impaired Gross Range of Motion Lower Extremity ROM Assessment Within Functional Limits Strength Lower Extremity Strength Assessment Bilaterally Impaired Hip 4-/5 Knee 4-/5 Coordination Assessment Gross Coordination Gross Coordination WNL Sensation Assessment Sensation Gross Sensation WNL Muscle Tone Muscle Tone WNL Yes M6 PT-IP Treatment Start: 04/19/19 13:06 Freq: NEEDED Status: Discharge Protocol: Document 04/19/19 09:00 AB (Rec: 04/19/19 13: AB [email or web address]) Physical Therapy Treatment Education Education Provided Safety M7 PT-IP Assessment and Plan Start: 04/19/19 13:06 Freq: NEEDED Status: Discharge Protocol: Document 04/19/19 09:00 AB (Rec: 04/19/19 13:19 AB [email or web address]) PT Summary Assessment and Plan Potential Rehabilitation Potential Good Status of Condition at Evaluation Stable Summary Impairments Strength,Gait Assessment Summary pt is doing well with mobility and will have spouse to assist him at home if needed. pt plans to go home today. pt may go home when medically stable. Goals Gait Goal Independent Gait Distance 300 Other Goals up/down steps without rails independent improve standing balance to N Days to Meet Goals 3 Frequency of Treatment Frequency Of Treatment Once a Day Treatment Plan Physical Therapy Treatment Plan Gait Training,Therapeutic Exercise,Balance Retraining, Discharge Planning, Neuromuscular Re-ed Recommendations To Nursing Amount of Assist Needed Standby Assistance Discharge Recommendations PT Discharge Recommendations Home with Assistance
--- NOTE | 2019-04-19 09:11 | P.DS_ITS ---
History of Present Illness History of Present Illness Date Patient Seen: 04/18/19 Chief complaint: Possible stoke this morning Narrative: Written by Dr. Flores: Mr. Pereyra is a 78-year-old male with past medical history of CVA 6 years ago and subsequent TIA 5 years ago on Plavix and hyperlipidemia who presented with new onset of right-sided numbness starting at 3:00 a.m. this morning. Patient states that he woke up at 3:00 a.m. to urinate, an noticed this and went back to bed. When he spoke with his at 6:30 a.m. he again noted right-sided numbness in his arm, leg and mouth. His with him and did not note any facial droop, imbalance, slurred speech, focal weakness in his right side. He states this is similar to his prior CVA 6 years ago. He normally has some numbness on the tips of his hands since his prior CVA but this episode was profoundly worse. He states now that his symptoms have largely resolved. He denies any recent fever, chills, headache, vision changes, chest pain, shortness of breath, nausea, vomiting, abdominal pain, lower extremity edema, orthopnea, or rashes. He has a neurologist that follows him, whom he called this morning and recommended that he take 4 75mg Plavix and a baby aspirin and go to the emergency room. In the emergency room his symptoms had improved including his right arm and right leg numbness, however his right facial numbness continued. Upon my evaluation the patient denied any symptoms at all. Total duration of symptoms was about 12 hours from known onset at 3:00 a.m. Discharge Providers Provider Date of admission: 04/18/19 13:54 Discharge Date: 04/19/19 Consults: 04/18/19 15:39 Consult to Occupational Therapy Evaluate & Treat Comment: Physician Instructions: Evaluate and treat Consult to Physical Therapy Evaluate & Treat Comment: Physician Instructions: Evaluate and Treat Consult to Speech Therapy Evaluate & Treat Comment: facial numbness. Physician Instructions: Evaluate and treat Discharge provider: Kaitlin Romeo DO Summary Hospital Course Discharge Diagnosis: 1. Acute TIA, present on admission. Resolved. 2. Elevated blood pressure without history of hypertension, present on admission. Improved. 3. Hyperlipidemia, chronic, present on admission. Possibly active. 4. JOHN, chronic, present on admission. Stable. 5. Prediabetes, acuity unclear, present on admission. Stable. Hospital Course: Jacob Pereyra Jr. is a 70-year-old male with past medical history significant for CVA 6 years ago and subsequent TIA 5 years ago on Plavix, hyperlipidemia, and JOHN on CPAP who presented with new onset of right-sided numbness of face, arm, and leg. 1. Acute TIA, present on admission. Resolved. -Patient presented with right-sided numbness without motor involvement similar to his previous CVA. -Allowed for permissive hypertension for 24 hours. -Continued frequent neuro checks every 4 hours. -Continued to monitor closely on telemetry. Patient in SR with PVC's and no other ectopy. -CT did not demonstrate any acute intracranial abnormalities. -MR stroke protocol demonstrated no evidence of acute ischemia or focal stenosis or occlusion ogf head or neck arteries. -Risk stratified with hemoglobin A1c 5.7% indicative of prediabetes and fasting lipid panel which demonstrated fairly good control other than slightly elevated triglycerides and LDL (due to previous history of CVA goal < 70): Total cholesterol 167, triglycerides at 164, LDL 77 , and HDL 57. Recommended lifestyle modification including diet and exercise. -Continued Plavix 75 mg daily and atorvastatin 40 mg daily at bedtime for stroke prophylaxis. -Consulted physical, occupational, and speech therapy for evaluation and treatment. 2. Elevated blood pressure without history of hypertension, present on admission. Improved. -Patient presented with TIA and mildly elevated BP (SBP 150-170 mmHg) which is possibly physiological to increase cerebral perfusion versus pathologic and chronically elevated. -Patient is not currently on any antihypertensive medications and has no pree xisting diagnosis of hypertension. -Allowed for permissive hypertension for 24 hours. BP trending down. Recommended ambulatory blood pressure monitor outpatient to assure patient does not have hypertension at baseline. 3. Hyperlipidemia, chronic, present on admission. Possibly active. -Fasting lipid panel as above. -Continued atorvastatin 40 mg daily at bedtime. -Recommended lifestyle modification including diet and exercise. 4. JOHN, chronic, present on admission. Stable. -Consulted RT for CPAP protocol. Patient recently had settings updated. 5. Prediabetes, acuity unclear, present on admission. Stable. -Hemoglobin A1C 5.7%. -Recommended lifestyle modification including diet and exercise. Exam Vital Signs (past 8 hours): - 04/19/19 04:23 04/19/19 07:45 04/19/19 09:00 Temperature 97.9 F 98.1 F Pulse Rate 67 70 Respiratory Rate 16 16 Blood Pressure 149/76 H 133/78 Pulse Oximetry 91 97 97 Oxygen Delivery Method Room Air Oxygen Flow Rate 0 Narrative Exam Narrative: General: Older gentleman sitting in bedside chain and in no acute distress, appears younger than stated age, well-developed, well-nourished, appropriately interactive. HEENT: Normocephalic, atraumatic. External ears without defect. Pupils equal, round, and reactive to light. Anicteric sclerae, moist conjunctivae, and no lid lag. Oropharynx free of erythema and cobble stoning with moist mucosa. Neck: Supple with full range of motion. No jugular venous distension. No bruits. No lymphadenopathy or thyromegaly. Cardiovascular: Regular rate and rhythm without murmurs, rubs, or gallops appreciated Pulmonary: Clear to auscultation bilaterally without crackles, wheezes, or rhonchi. Normal respiratory effort without use of accessory muscles. Abdomen: Soft, bowel tones present, nontender, nondistended. No hepatosplenomegaly or masses appreciated. Extremities: No clubbing, cyanosis, or edema. Skin: Normal temperature, turgor, and texture; no rash, ulcers, or subcutaneous nodules appreciated. Neurological: Cranial nerves grossly intact. Normal muscle strength, tone, and bulk. Reflexes, coordination, and sensory function within normal limits. No known gait impairment. No focal neurological deficit. Psychiatric: Normal mood and affect. Alert and oriented to person, place, and time. Objective Labs Result Diagrams: 04/19/19 05:32 04/19/19 05:32 Labs: Laboratory Results - last 24 hr 04/18/19 04/18/19 04/18/19 12:05 12:05 12:05 WBC 6.2 RBC 4.46 L Hgb 14.0 Hct 41.5 MCV 93.0 MCH 31.3 MCHC 33.7 RDW 14.6 Plt Count 197 Neut % (Auto) 72.2 Lymph % (Auto) 20.3 L [place] % (Auto) 6.5 Eos % (Auto) 0.4 L Baso % (Auto) 0.6 Neut # (Auto) 4500 Lymph # (Auto) 1300 [place] # (Auto) 400 Eos # (Auto) 0 Baso # (Auto) 0 PT 10.7 INR 0.9 APTT 29 Sodium 141 Potassium 4.0 Chloride 106 Carbon Dioxide 24 BUN 19 Creatinine 0.70 Estimated GFR > 60.0 BUN/Creatinine Ratio 27.1 H Glucose 119 H Hemoglobin A1c Calcium 9.7 Magnesium Triglycerides Cholesterol LDL Cholesterol, Calc HDL Cholesterol TSH Urine RBC Urine WBC Ur Squamous Epith Cells Urine Bacteria Ur Culture Indicated? Urine Opiates Screen Ur Oxycodone Screen Urine Methadone Screen Ur Barbiturates Screen U Tricyclic Antidepress Ur Phencyclidine Scrn Ur Amphetamines Screen U Methamphetamines Scrn Ur MDMA Scrn (Ecstasy) U Benzodiazepines Scrn Urine Cocaine Screen U Marijuana (THC) Screen 04/18/19 04/18/19 04/19/19 13:10 13:10 05:32 WBC 6.5 RBC 4.17 L Hgb 13.0 L Hct 38.5 L MCV 92.2 MCH 31.3 MCHC 33.9 RDW 14.6 Plt Count 190 Neut % (Auto) 61.2 Lymph % (Auto) 28.2 [place] % (Auto) 8.6 Eos % (Auto) 1.5 L Baso % (Auto) 0.5 Neut # (Auto) 4000 Lymph # (Auto) 1800 [place] # (Auto) 600 Eos # (Auto) 100 Baso # (Auto) 0 PT INR APTT Sodium Potassium Chloride Carbon Dioxide BUN Creatinine Estimated GFR BUN/Creatinine Ratio Glucose Hemoglobin A1c Calcium Magnesium Triglycerides Cholesterol LDL Cholesterol, Calc HDL Cholesterol TSH Urine RBC None seen Urine WBC 5-10/hpf H Ur Squamous Epith Cells 10-30 /hpf H Urine Bacteria None seen Ur Culture Indicated? Cult not indicated Urine Opiates Screen Positive H Ur Oxycodone Screen Negative Urine Methadone Screen Negative Ur Barbiturates Screen Negative U Tricyclic Antidepress Negative Ur Phencyclidine Scrn Negative Ur Amphetamines Screen Negative U Methamphetamines Scrn Negative Ur MDMA Scrn (Ecstasy) Negative U Benzodiazepines Scrn Negative Urine Cocaine Screen Negative U Marijuana (THC) Screen Negative 04/19/19 04/19/19 04/19/19 05:32 05:32 05:32 WBC RBC Hgb Hct MCV MCH MCHC RDW Plt Count Neut % (Auto) Lymph % (Auto) [place] % (Auto) Eos % (Auto) Baso % (Auto) Neut # (Auto) Lymph # (Auto) [place] # (Auto) Eos # (Auto) Baso # (Auto) PT INR APTT Sodium 138 Potassium 3.7 Chloride 107 Carbon Dioxide 26 BUN 17 Creatinine 0.80 Estimated GFR > 60.0 BUN/Creatinine Ratio 21.3 Glucose 122 H Hemoglobin A1c 5.7 Calcium 8.7 Magnesium 1.9 Triglycerides 164 H Cholesterol 167 LDL Cholesterol, Calc 77 HDL Cholesterol 57 TSH 2.59 Urine RBC Urine WBC Ur Squamous Epith Cells Urine Bacteria Ur Culture Indicated? Urine Opiates Screen Ur Oxycodone Screen Urine Methadone Screen Ur Barbiturates Screen U Tricyclic Antidepress Ur Phencyclidine Scrn Ur Amphetamines Screen U Methamphetamines Scrn Ur MDMA Scrn (Ecstasy) U Benzodiazepines Scrn Urine Cocaine Screen U Marijuana (THC) Screen Discharge Plan Discharge Plan Patient Disposition: Home Discharge comment: You are being discharged home. Please follow-up with your primary care provider in the next 1 week regarding your hospitalization. Your MRI did not demonstrate a stroke or any significant narrowing or occlusion of the arteries of your brain. You are prediabetic and recommend lifestyle modification including diet and exercise as discussed. The [place] [employer] recommends 150 minutes of moderate intensity exercise per week for cardiovascular health. If you are not currently active start with small obtainable goals and work your way up. Continue atorvastatin and clopidogrel as prescribed. Recommend ambulatory blood pressure monitoring to assure that you do not have hypertension which should be treated as this is a high cardiovascular risk factor for heart attack and stroke. Discharge Med Rec/Prescriptions Prescriptions: Continued atorvastatin 40 mg tablet 40 mg PO QPM RF: 0 clopidogrel 75 mg tablet 75 mg PO DAILY RF: 0 Provider Discharge Instructions Diet: Carb-consistent/Diabetic, Low-fat, Low-sodium and Low-cholesterol Activity: Activity as tolerated Visit Report/Discharge Packet Instructions: The Mediterranean Diet and Good Health, Recommendations to Help Prevent High Blood Pressure, Transient Ischemic Attack, DI for Transient Ischemic Attack, DI for Prediabetes Discharge Data Attending Provider: Ricardo Flores Admit Date/Time: 04/18/19 13:54 Discharges patient from system. Discharge Date/Time: 04/19/19 13:12 Quality VTE Deep Vein Thrombosis/Pulmonary Embolism Present on Admission: No
--- NOTE | 2019-04-19 10:00 | ST.IP.CME ---
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 Romeo Reason for Referral TIA Past Medical History Patient History Patient is retired and lives at home with his . He was admitted for stroke like symptoms. CT showed no acute intracranial abnormalities, cerebal volume loss and chronic microvascular ischemic changes. Patient to get MRI this am. Hearing Hearing Level Normal Vision Comments Wears glasses Occupational Status Occupation Status Retired Previous Therapy Previous Speech-Language Therapy No - Formal Assessment Standardized Test [place] Cognitive Assessment Administration Complete Raw Score 24/30 - Cognition Orientation Skill Level Mildly Impaired Attention Skill Level WNL Problem Solving/Reasoning/Judgment Skill Level WNL Divergent Naming Skill Level WNL Category Naming/Identification Skill Level WNL Auditory Math Skill Level WNL Clock Drawing Skill Level WNL - Memory Short Term Memory Skill Level Mildly Impaired Immediate Recall Skill Level Mildly Impaired Word Recall Skill Level Mildly Impaired - Findings Cognitive/Memory Impressions Patient scored 0/5 on MOCA for delayed recall and missed one point for incorrectly stating the day of the week. Score of 24/ 30 indicates mild cognitive impairment, specifically short term memory impairments which patient and report are not new since this hospitalization, but may have been a result of prior CVA 6 years ago. Patient denies any previous speech therapy. Education provided to patient regarding outpatient speech therapy for training in compensatory memory aids and cognitive rehabilitation. Currently, patient relies on a calendar and his to assist with remembering appointments. Patient's manages all finances. No impairments in speech or language observed. Speech is intelligible and appropriate. Recommendations Recommendations Patient is at baseline for speech, language and cognition . Denies any difficulty swallowing. Patient may benefit from outpatient speech therapy upon discharge home to target short term memory. Total Time Full Evaluation Time 20
--- NOTE | 2019-04-19 10:38 | PC.NURSE ---
Day shift: Pt left unit for MRI at approx 1030.
--- NOTE | 2019-04-19 13:10 | PC.NURSE ---
Day shift: Paperwork signed and all questions answered. Taken to private car driven by Pt's spouse in WC by this field underwriter. No new med scrips. Pt has all personal belongings.
--- NOTE | 2019-04-19 15:37 | DI.MRI.S_ITS ---
PROCEDURE: MR STROKE Pre- and post-contrast brain MRI, non-contrast brain MR angiogram, pre- and postcontrast neck MR angiogram INDICATIONS: R facial, R arm and R leg numbness lasting for 12 hours. TECHNIQUE: Brain: Noncontrast axial T1 spin echo, axial T2 fast spin echo, sagittal and axial FLAIR, coronal T2 fast spin echo, axial gradient echo, axial diffusion and ADC through the brain. After the administration of contrast, axial 3D VIBE of the cranial vasculature and brain. Brain MRA: Non-contrast 3-D time of flight MR angiogram, with multiple cycwrex-tfoalysdb-llliqhdeno (MIP) reformats performed. Neck MRA: Axial and sagittal TruFISP through the neck. Coronal dynamic MR angiogram during administration of contrast in the arterial and venous phases, with 3-dimenstional rxctisj-ophmzmsmy-huyuzkoyvm (MIP) reformats constructed from subtraction images. COMPARISON: None. FINDINGS: Image quality: Excellent. BRAIN: CSF spaces: Ventricles are normal in size and shape. Basal cisterns are patent. No extra-axial fluid collections. Brain: No intracranial bleeds or mass effects. Mao-white matter interface is normal. Diffusion weighted images show no acute ischemic insults. Brainstem appears normal. Normal intravascular flow voids are present. No abnormal intracranial enhancement. Skull and face: Calvarial marrow signal is normal. Orbits appear normal. Mild left maxillary sinus disease. BRAIN MR ANGIOGRAM: Anterior circulation: Intracranial internal carotid arteries are normal in size and enhancement. The flow within the paired anterior cerebral arteries is normal and symmetric. The flow within the middle cerebral arteries is normal and symmetric. The anterior communicating artery is seen. No stenoses, occlusions, or aneurysms. Posterior circulation: The visualized portions of the vertebral arteries demonstrate normal caliber, and join to form a normal appearing basilar artery. origin of both posterior cerebral arteries. The flow within the posterior cerebral arteries is normal and symmetric. No stenoses, occlusions, or aneurysms. NECK MR ANGIOGRAM: Carotids: Great vessels demonstrate a conventional anatomy as they arise from the aortic arch. The origins of the common carotid arteries appear patent. The calibers and courses of both common carotid arteries are normal. The bifurcation regions appear normal bilaterally. No low-grade less than 50% focal stenosis involving the proximal left ICA. Posterior circulation: The origins of the vertebral arteries appear patent. Dominant left vertebral artery. Unremarkable basilar artery. Miscellaneous: Subclavian arteries appear patent. Pre-contrast images through the neck show no soft tissue abnormalities. IMPRESSION: BRAIN MRI: No evidence of acute ischemia. BRAIN MR ANGIOGRAM: No focal stenosis or occlusion NECK MR ANGIOGRAM: No hemodynamically significant ICA stenosis identified. Dominant left vertebral artery. Dictated by: Pietro Mcnamara M.D. on 04/19/2019 at 11:29 Approved by: Pietro Mcnamara M.D. on 04/19/2019 at 11:37
== END 2019-04-19 13:12 | disposition home or self-care (01) ==
LOC: ED 12:35 → AC 13:55
PROVIDERS: Admitting Provider Internal Medicine; Emergency Provider Nurse Practitioner; Visit Provider Internal Medicine
DX: G45.9 Transient cerebral ischemic attack, unspecified (principal); R29.818 Other symptoms and signs involving the nervous system; Z86.73 Personal history of transient ischemic attack (TIA), and cerebral infarction without residual deficits; Z79.01 Long term (current) use of anticoagulants; G47.33 Obstructive sleep apnea (adult) (pediatric); R73.03 Prediabetes; E78.5 Hyperlipidemia, unspecified; R03.0 Elevated blood-pressure reading, without diagnosis of hypertension
CPT/HCPCS: 36415; 36591; 70450; 70548; 70553; 80048; 80061; 80305; 81003; 81015; 82962; 83036; 83735; 84443; 85025; 85610; 85730; 92523; 93005; 93010; 96360; 96361; 97161; 99283; 99285; G0378; A9579; J1644

== ENCOUNTER → 2023-07-07 11:56 | Outpatient (CLI) | payer MEDICARE, OTHER, SELFPAY ==
[2019-04-18 16:48] VITALS: BMI 27.7
[2023-07-07 13:01] LABS: Add Manual Diff / Slide Review NO; Basophils Absolute Auto 0 /uL (0-100); Basophils Percent Auto 0.6 % (0-2); Eosinophils Absolute Auto 300 /uL (0-450); Eosinophils Percent Auto 3.5 % (2-4); Hematocrit 39.9 % (41-53); Hemoglobin 13.5 g/dL (13.5-17.5); Lymphocytes Absolute Auto 2200 /uL (1100-4500); Lymphocytes Percent Auto 29.4 % (25-40); Mean Corpuscular HGB Conc 33.8 % (30-36); Mean Corpuscular Hemoglobin 31.7 PG (26-34); Mean Corpuscular Volume 93.7 fL (80-100); Monocytes Absolute Auto 700 /uL (0-900); Monocytes Percent Auto 9.6 % (3-14); Neutrophils Absolute Auto 4300 /uL (1500-7000); Neutrophils Percent Auto 56.9 % (50-75); Platelet Count 211 X10^3/uL (150-400); Red Blood Cell Count 4.26 X10^6/uL (4.5-5.9); Red Cell Distribution Width 14.6 % (11.6-14.8); White Blood Cell Count 7.6 X10^3/uL (4.5-11.0)
[2023-07-07 13:40] LABS: Alanine Aminotransferase 49 IU/L (<50); Albumin 4.3 g/dL (3.5-5.0); Albumin Globulin Ratio 1.7 (1.0-2.8); Alkaline Phosphatase 46 U/L (38-126); Aspartate Aminotransferase 36 IU/L (17-59); BUN Creatinine Ratio 28.4 (6-22); Bilirubin Total 0.6 mg/dL (0.2-1.3); Blood Urea Nitrogen 21 mg/dL (9-20); Calcium 9.7 mg/dL (8.4-10.2); Carbon Dioxide 29 mmol/L (22-32); Chloride 104 mmol/L (98-107); Cholesterol 177 mg/dL (140-199); Estimated Glomerular Filt Rate > 60 mL/min (>60); Globulin 2.6 g/dL (1.7-4.1); Glucose 107 mg/dL (80-110); HDL Cholesterol 72 mg/dL (40-60); HEMOLYSIS < 15 (0-50); LDL Cholesterol Calculated 73 mg/dL (<100); Potassium 4.2 mmol/L (3.4-5.1); Sodium 139 mmol/L (137-145); Total Protein 6.9 g/dL (6.3-8.2); Triglycerides 160 mg/dL (35-150)
== END ==
PROVIDERS: PCP Family Medicine; Referring Provider Student in an Organized Health Care Education/Training Program; Visit Provider Student in an Organized Health Care Education/Training Program
DX: E78.5 Hyperlipidemia, unspecified (principal); G45.9 Transient cerebral ischemic attack, unspecified
CPT/HCPCS: 36415; 80053; 80061; 85025